=== PATIENT | male | born 1990 | race Caucasian/White ===

== ENCOUNTER 2017-09-28 05:46 | Outpatient (CLI) | payer BC ==
[~2017-09-28] VITALS: Ht 177.8 cm; Wt 84.4 kg
[2017-09-28] MEDS ORDERED: OMEP20TA7 PO (15:51)
[2017-09-30] MEDS ORDERED: FAMO-119 PO (10:35)
== END 2017-09-28 15:53 ==
LOC: PREOP 05:46
PROVIDERS: ATTEND Internal Medicine
DX: Z01.818 Encounter for other preprocedural examination (principal); R13.10 Dysphagia, unspecified; K21.9 Gastro-esophageal reflux disease without esophagitis

== ENCOUNTER 2017-09-30 08:37 | Day surgery (SDC) | payer BC ==
--- NOTE | 2017-09-28 06:18 | HISTORY AND PHYSICAL ---
DATE OF SERVICE: ESOPHAGOGASTRODUODENOSCOPY HISTORY AND PHYSICAL HISTORY OF PRESENT ILLNESS: The patient is 31-year-old white male referred by Dr. Knutson for consideration for EGD evaluation. He has had a 2 to 3 year history of epigastric pain that radiates up into the chest. He had been on past b.i.d. omeprazole. His asked me as to whether or not I have concerns about and increased rate on PPI therapy. We did have an ensuing conversation about slight increased risks for pneumonia and GI bacterial infection with acid suppression, but I was not aware of any problems with an increased mortality rate on the medication. We also discussed the fact that he was at low risk category being an otherwise healthy 31-year-old with no other reported medical problems. When he is on b.i.d. proton pump inhibitor therapy, he does have control of his symptoms but has no past history of EGD evaluation to evaluate for Colón's. His symptoms have progressed to intermittent dysphagia to solids, prompting him to come in to see Dr. Knutson and resume PPI therapy. He had been taking Pepcid Complete most often twice daily and intermittent Tums for breakthrough symptoms. He denies melena or bright red blood per rectum. His guesses that he has probably put on 20 pounds in the past 2 to 3 years but heartburn symptoms go back to his late teens. SOCIAL HISTORY: He is employed. No past smoking history and no significant alcohol intake. PAST SURGICAL HISTORY: He reports no past surgeries. FAMILY HISTORY: He is not aware of any family history for GI tract malignancy or Colón's. Mother is 51, has history of hypertension and depression. Dad is 54 with reported history of obstructive sleep apnea. REVIEW OF SYSTEMS: CONSTITUTIONAL: Positive for weight gain. Denies night sweats, chills or fever. CHEST: He denies chest pain, cough or sore throat. CARDIOVASCULAR: He denies orthopnea, PND, pedal edema or increased dyspnea on exertion over baseline. He has had no presyncope or syncope. GASTROINTESTINAL: As per HPI. PHYSICAL EXAMINATION: GENERAL: Reveals well appearing, well-kempt, articulate white male in no acute distress. VITAL SIGNS: Blood pressure 122/80. The patient is 5 feet 10 inches and weighs 183 pounds. HEENT: Oral cavity reveals a Mallampati class 2 configuration. Pharynx is clear. No exudate is noted. No erythema is noted. NECK: Reveals no JVD, adenopathy or bruits. CHEST: Clear to auscultation. CARDIOVASCULAR: Reveals a regular rate and rhythm without murmur, S3 or S4. ABDOMEN: Soft, supple without mass, organomegaly or tenderness. Bowel sounds are positive. No bruits are noted. EXTREMITIES: Reveal no cyanosis, clubbing or edema. ASSESSMENT AND PLAN: Reflux symptoms with recent dysphagia and no past history for EGD evaluation. He was set up for EGD on 09/30/2017. Prep instructions were given and he is to avoid aspirin and nonsteroidal medications in the interval, using Tylenol only if need be. The procedure was discussed. The concerns and the need to rule out Colón's esophagus also discussed. In answering the patient's questions and evaluation, 40 minutes care time spent today not including dictation time. Job ID: [id number] DocumentID: [id number] Dictated Date: 09/19/2017 16:54:39 Safety Manager Date: 09/19/2017 17:30:30 Dictated By: DEANA ZIEGLER MD
[~2017-09-30] VITALS: Ht 177.8 cm; Wt 84.4 kg
[~2017-09-30 08:37] MED LIST: OMEP20TA7 PO
--- NOTE | 2017-09-30 08:47 | Pre-Op Note & Conscious Sedat ---
Pre-Operative Progress Note H&P Reviewed The H&P was reviewed, patient examined and no changes noted. Date H&P Reviewed: Sep 30, 2017 Time H&P Reviewed: 08:46 Conscious Sedation Pre-Proced ASA Class: 1 Airway Mallampati Classification: ([place] appropriate class) I. II. III, IV Lungs Heart ASA score ASA 1: a normal healthy patient ASA 2: a patient with a mild systemic disease (mid diabetes, controlled hypertension, obesity ASA 3: a patient with a severe systemic disease that limits activity (angina , COPD, prior Myocardial infarction) ASA 4: a patient with an incapacitating disease that is a constant threat to life (CHF, renal failure) ASA 5: a moribund patient not expected to survive 24 hrs. (ruptured aneurysm) ASA 6: a declared brain patient whose organs are being harvested. For emergent operations, add the letter E after the classification Grade 2 Sedation Plan: Analgesia, Amnesia, Plan communicated to team members, Discussed options with patient/fam, Discussed risks with patient/fam Note The patient is an appropriate candidate to undergo the planned procedure, sedation, and anesthesia. The patient immediately re-assessed prior to indication. DEANA ZIEGLER MD Sep 30, 2017 08:47
[2017-09-30] MEDS ORDERED: D5 LR IV SOLUTION 1,000 ML IV ONE (09:00)
[2017-09-30 09:10] VITALS: BP 118/70
[2017-09-30] MEDS ORDERED: LIDOCAINE JELLY 2% (XYLOCAINE) 5 ML TUBE ONE (09:38)
[2017-09-30] MEDS ORDERED: HURRICAINE EXT TUBE (BENZOCAINE) ONE (09:38)
[2017-09-30] MEDS ORDERED: fentaNYL INJECTION 100 MCG/2 ML AMP ONE (09:38)
[2017-09-30] MEDS ORDERED: MIDAZOLAM 2 MG/2 ML (VERSED) VIAL ONE ×3 (09:38)
[2017-09-30] MEDS: fentaNYL INJECTION 100 MCG/2 ML AMP IVP PRN ×2 (09:57→10:06)
[2017-09-30] MEDS: MIDAZOLAM 2 MG/2 ML (VERSED) VIAL IVP PRN ×3 (10:00→10:10)
[2017-09-30 10:30] VITALS: BP 101/53
[2017-09-30] MEDS ORDERED: LIDOCAINE JELLY 2% (XYLOCAINE) 5 ML TUBE TOP ONE (10:30)
[2017-09-30] MEDS ORDERED: HURRICAINE EXT TUBE (BENZOCAINE) XX ONE (10:30)
[2017-09-30] MEDS ORDERED: FAMO-119 PO (10:35)
[2017-09-30 11:00] VITALS: BP 111/61
[2017-09-30 11:03] VITALS: BP 111/61
--- NOTE | 2017-09-30 14:00 | OPERATIVE REPORT ---
DATE OF SERVICE: EGD SUMMARY INDICATION FOR THE PROCEDURE: Intermittent dysphagia with reflux. DESCRIPTION OF PROCEDURE: The patient was placed in the left lateral decubitus position. The endoscope was inserted in the oral cavity and under direct visualization, the esophagus was intubated. The endoscope was passed down the esophagus through the stomach and second portion of the duodenum. A careful inspection was made as the endoscope was withdrawn. The patient tolerated the procedure well. FINDINGS: The oral cavity was clear. The posterior pharynx, arytenoid aperture, true and false vocal folds were unremarkable. No evidence for erythema was noted. Proximal and mid esophagus were unremarkable. There was some mild amount of erythema noted at the Z line without evidence for erosive esophagitis. A small sliding hiatal hernia is present. There is no evidence for furrowing to suggest underlying eosinophilic esophagitis. A biopsy was obtained from the Z line and submitted for histopathology. The cardia, fundus, antrum, pylorus, pyloric channel, duodenal bulb and second portion of the duodenum were unremarkable. Normal villous pattern. No evidence for duodenitis or gastritis was noted on today's evaluation. ASSESSMENT: Small hiatal hernia is present without evidence for erosive esophagitis or Colón's change to gross inspection. Biopsy was obtained from the Z line is pending. This is an otherwise normal EGD. At this point, I advised b.i.d. H2 jesse therapy in the form of Pepcid 20 mg with p.r.n. antacid use. Non-medication antireflux measures were discussed with the patient as well. If this does not suffice in controlling his symptoms, then would advocate switch to proton pump inhibitor therapy. I thank you for the referral of this pleasant gentleman. Job ID: [id number] DocumentID: [id number] Dictated Date: 09/30/2017 10:43:11 Faculty Neuropsychologist Date: 09/30/2017 14:00:20 Dictated By: DEANA ZIEGLER MD [facility]
--- OUTSIDE RECORDS SUMMARY | 2017-09-30 16:24 | XMS REPORT ---
Author Author DEE PARTIDA [facility] Address [address] [place] [address] Care Team Providers Care Credit Authorizer Name Role Phone DEE PARTIDA Unavailable PROBLEMS Type Condition ICD9-CM Code [id number] Code Onset Dates Condition Status SNOMED Code Problem Depressive disorder, not elsewhere classified F32.9 Active 91103615 Assessment Genital warts A63.0 Apr, Active 809975191 ALLERGIES Substance Reaction Event Type Date Status N.K.D.A. Unknown Non Drug Allergy Apr, Unknown SOCIAL HISTORY No smoking Hx information available PLAN OF CARE VITAL SIGNS Height 70 in 2016-05-11 Weight 161.9 lbs 2016-05-11 Heart Rate 84 bpm 2016-05-11 Respiratory Rate 18 2016-05-11 BMI 23.23 kg/m2 2016-05-11 Blood pressure systolic 124 mmHg 2016-05-11 Blood pressure diastolic 74 mmHg 2016-05-11 MEDICATIONS Medication Instructions Dosage Frequency Start Date End Date Duration Status Augmentin 875-125 MG Orally every 12 hrs 1 tablet 12h Apr,Apr 10 day(s) Active Fluticasone Propionate 50 MCG/ACT Nasally Once a day 1-2 spray in each nostril 24h Apr, 7 days Active Benadryl Allergy 25 MG Orally every 6 hrs 1 tablet as needed 6h Active Zoloft 50 mg Orally Once a day 1 tablet 24h Mar, Active RESULTS No Results PROCEDURES Procedure Date Ordered Related Diagnosis Body Site WART DESTRUCT 1-14 (CRYO) 2016-05-11 N/A DESTRUCT LESION, 1-14 May 11, 2016 Office Visit, Est Pt., Level 2 May 11, 2016 IMMUNIZATIONS No Known Immunizations
--- OUTSIDE RECORDS SUMMARY | 2017-09-30 16:24 | XMS REPORT ---
Author DEE Bright [facility] eClinicalWorks Address Unknown Phone Unavailable Care Team Providers Care Project Engineer Chemicals Name Role Phone DEE PARTIDA CP Unavailable Allergies, Adverse Reactions, Alerts Substance Reaction Event Type N.K.D.A. Info Not Available Non Drug Allergy Problems Problem Type Condition Code Onset Dates Condition Status Problem Depressive disorder, not elsewhere classified F32.9 Active Assessment Genital warts A63.0 Active Problem Genital warts A63.0 Active Medications Medication Code System Code Instructions Start Date End Date Status Dosage Benadryl Allergy [facility] [address]-33 25 MG Orally every 6 hrs 1 tablet as needed Fluticasone Propionate [facility] [address]-90 50 MCG/ACT Nasally Once a day Apr 30, 2016 1-2 spray in each nostril Zoloft [facility] [address]-92 50 mg Orally Once a day Mar 24, 2016 1 tablet Procedures Procedure Coding System Code Date Office Visit, Est Pt., Level 3 CPT-4 00003 Jun 10, 2016 DESTRUCT LESION, 1-14 CPT-4 16547 Jun 10, 2016 Vital Signs Date/Time: Jun 10, 2016 Cardiac Monitoring Heart Rate 88 bpm Weight 164.1 lbs Height 70 in BMI 23.54 Index Blood Pressure Diastolic 78 mmHg Blood Pressure Systolic 106 mmHg Results No Known Results Summary Purpose eClinicalWorks Submission
--- OUTSIDE RECORDS SUMMARY | 2017-09-30 16:24 | XMS REPORT ---
Author Author MELANIE LEZAMA [facility] eClinicalWorks Address Unknown Phone Unavailable Care Team Providers Care Chief Scientist Name Role Phone MELANIE LEZAMA CP Unavailable Allergies, Adverse Reactions, Alerts Substance Reaction Event Type N.K.D.A. Info Not Available Non Drug Allergy Problems Problem Type Condition Code Onset Dates Condition Status Assessment Dysthymia F34.1 Active Assessment Genital warts A63.0 Active Problem Depressive disorder, not elsewhere classified F32.9 Active Medications Medication Code System Code Instructions Start Date End Date Status Dosage Zoloft [facility] [address]-22 50 mg Orally Once a day Mar 24, 2016 1 tablet Procedures Procedure Coding System Code Date Office Visit, Est Pt., Level 3 CPT-4 96865 Apr 28, 2016 Vital Signs Date/Time: Apr 28, 2016 Cardiac Monitoring Heart Rate 78 bpm Weight 159.2 lbs Height 70 in BMI 22.84 Index Blood Pressure Diastolic 74 mmHg Blood Pressure Systolic 112 mmHg Results No Known Results Summary Purpose eClinicalWorks Submission
--- OUTSIDE RECORDS SUMMARY | 2017-09-30 16:24 | XMS REPORT ---
Author Author MIRIAN PAUL Organization [facility] Address [address] [place] [address] Care Team Providers Care Ocean Clam Boat Captain Name Role Phone MIRIAN PAUL Unavailable PROBLEMS Type Condition ICD9-CM Code [id number] Code Onset Dates Condition Status SNOMED Code Problem Depressive disorder, not elsewhere classified F32.9 Active 25048548 Assessment Acute non-recurrent maxillary sinusitis J01.00 Apr, Active 95084694 ALLERGIES Substance Reaction Event Type Date Status N.K.D.A. Unknown Non Drug Allergy Apr, Unknown SOCIAL HISTORY No smoking Hx information available PLAN OF CARE VITAL SIGNS Height 70 in 2016-04-30 Weight 161.4 lbs 2016-04-30 Heart Rate 70 bpm 2016-04-30 Respiratory Rate 20 2016-04-30 BMI 23.16 kg/m2 2016-04-30 Blood pressure systolic 102 mmHg 2016-04-30 Blood pressure diastolic 70 mmHg 2016-04-30 MEDICATIONS Medication Instructions Dosage Frequency Start Date [...] Procedure Date Ordered Related Diagnosis Body Site Office Visit, Est Pt., Level 3 Apr 30, 2016 IMMUNIZATIONS No Known Immunizations
--- OUTSIDE RECORDS SUMMARY | 2017-09-30 16:24 | XMS REPORT ---
Author Author ARNIE SEE [facility] Address [address] [place] [address] Care Team Providers Care Founding Partner Name Role Phone ARNIE SEE Unavailable PROBLEMS Type Condition ICD9-CM Code [id number] Code Onset Dates Condition Status SNOMED Code Problem Depressive disorder, not elsewhere classified F32.9 Active 40010081 Assessment Depressive disorder, not elsewhere classified F32.9 Apr, Active 24611502 ALLERGIES No Known Allergies SOCIAL HISTORY No smoking Hx information available PLAN OF CARE VITAL SIGNS MEDICATIONS No Known Medications RESULTS No Results PROCEDURES Procedure Date Ordered Related Diagnosis Body Site Psychotherapy, patient &/family, 30 minutes, established patient May 06, 2016 IMMUNIZATIONS No Known Immunizations
--- OUTSIDE RECORDS SUMMARY | 2017-09-30 16:24 | XMS REPORT ---
Author Author ARINE SEE Organization eClinicalWorks Address Unknown Phone Unavailable Care Team Providers Care Csr Name Role Phone ARNIE SEE CP Unavailable Allergies No Known Allergies Problems Problem Type Condition Code Onset Dates Condition Status Assessment Depressive disorder, not elsewhere classified F32.9 Active Problem Depressive disorder, not elsewhere classified F32.9 Active Medications No Known Medications Procedures Procedure Coding System Code Date Psychotherapy, patient &/family, 30 minutes, established patient CPT-4 58560 May 27, 2016 Results No Known Results Summary Purpose eClinicalWorks Submission
== END 2017-09-30 11:04 | disposition home or self-care (01) ==
LOC: ENDO 08:37
PROVIDERS: ATTEND Internal Medicine
DX: K21.9 Gastro-esophageal reflux disease without esophagitis (principal); K44.9 Diaphragmatic hernia without obstruction or gangrene